=== PATIENT | female | born 1930 | race Caucasian/White ===

== ENCOUNTER 2018-02-04 11:05 | Inpatient (IN) | payer OTHER ==
--- NOTE | 2018-02-04 11:50 | PDOC ---
History of Present Illness - General Chief Complaint: Revisit, Lab Variance Stated Complaint: ANEMIA, KIDNEY PROBLEM Time Seen by Provider: 02/04/18 11:49 - History of Present Illness Initial Comments: 02/04/18 11:54 87yo F hx HTN, hypothyroid, RA, gout, bronchitis presents to ED from PCPs office due to anemia on outpt labs. Pt's hemoglobin was found to be 8.9 compared to 14 for 1 year ago. Pt reports black stools for 1 week. Not on any blood thinners. Pt states she takes advil twice a day for arthritis. Last colonoscopy 15+ years ago. Denies dizziness, SOB, CP. Pt's calcium also found to 6.9 and creatinine 2.4, up from 1.8 one year ago. Pt currently under work up for LE edema, had an US 1 week ago at [place] that was reportedly negative for DVT. Denies f/c, abd pain, headache, focal weakness/numbness. Has 71 pack year smoking hx. Past History - Past Medical History Allergies/Adverse Reactions: Allergies Allergy/AdvReac Type Severity Reaction Status Date / Time No Known Allergies Allergy Verified 02/04/18 11:25 Home Medications: Ambulatory Orders Cholecalciferol (Vitamin D3) [Vitamin D3] 1,000 unit PO DAILY capsule 05/23/14 Ibuprofen [Advil -] 400 mg PO DAILY 02/04/18 Nabumetone [Relafen -] 500 mg PO DAILY 02/04/18 Anemia: Yes COPD: No Disorders: Yes HTN: Yes Thyroid Disease: Yes Other medical history: RHEUMATOID ARTHRITIS - Suicide/Smoking/Psychosocial Hx Smoking History: Never smoked Information on smoking cessation initiated: No Hx Alcohol Use: No Drug/Substance Use Hx: No Substance Use Type: None Review of Systems - Review of Systems Comments:: 02/04/18 11:58 GENERAL/CONSTITUTIONAL: No fever or chills. No weakness. HEAD, EYES, EARS, NOSE AND THROAT: No change in vision. No ear pain or discharge. No sore throat. GASTROINTESTINAL: No nausea, vomiting, diarrhea or constipation. +dark stools GENITOURINARY: No dysuria, frequency, or change in urination. CARDIOVASCULAR: No chest pain or shortness of breath. RESPIRATORY: No cough, wheezing, or hemoptysis. MUSCULOSKELETAL: No joint or muscle swelling or pain. No neck or back pain. SKIN: No rash NEUROLOGIC: No headache, vertigo, loss of consciousness, or change in strength/ sensation. ENDOCRINE: No increased thirst. No abnormal weight change. HEMATOLOGIC/LYMPHATIC: No anemia, easy bleeding, or history of blood clots. ALLERGIC/IMMUNOLOGIC: No hives or skin allergy. *Physical Exam - Vital Signs Last Vital Signs Temp Pulse Resp BP Pulse Ox 98.9 F 79 18 139/84 97 02/04/18 11:17 02/04/18 11:17 02/04/18 11:17 02/04/18 11:17 02/04/18 11:17 - Physical Exam Comments: 02/04/18 11:58 GENERAL: Awake, alert, in no acute distress. Pale in appearance. EYES: Pale conjunctiva ENT: Oropharynx clear without exudates. Moist mucosa NECK: Normal ROM, supple, no lymphadenopathy, JVD, or masses LUNGS: course BS throughout with diffuse mild exp wheezing. No crackles or increased WOB HEART: Regular rate and rhythm, normal S1 and S2, no murmurs, rubs or gallops ABDOMEN: Soft, nontender, normoactive bowel sounds. No guarding, no rebound. No masses RECTAL exam: brown non bloody stool in vault, no active bleeding EXTREMITIES: +b/l 2+ pitting LE edema NEUROLOGICAL: Normal speech, cranial nerves intact, equal strength and sensation b/l ED Treatment Course - LABORATORY CBC & Chemistry Diagram: 02/04/18 12:50 02/04/18 12:50 Medical Decision Making - Medical Decision Making 02/04/18 12:28 87yo F hx hypothyroid, HTN, CKD, daily NSAID use presents to the ED with abnormal labs including anemia with hgb down to 8s from 14 one year ago. Vitals wnl, exam with brown non bloody stool. Likely UGIB 2/2 possible ulcer from NSAID use? Will check labs, get GI c/s, transfuse, and admit. 02/04/18 15:05 Hgb stable at 9.2, calcium still low corrected Dr. Munguia recommends PPI, admission for possible endoscopy Wednesday Pt can have clear liquid diet Case discussed with Dr. Head, pt accepted for inpt admission Case discussed in detail with admitting physician including history, physical exam and ancillary studies. Admitting physician has assumed care for the patient, will follow all pending diagnostics and will complete the evaluation and treatment. *DC/Admit/Observation/Transfer Diagnosis at time of Disposition: GI bleed - Discharge Dispostion Condition at time of disposition: Good Decision to Admit order: Yes - Referrals Referrals: Aiden Ramirez MD [Primary Care Provider] - - Patient Instructions - Post Discharge Activity - Attestations Physician Attestion: 02/04/18 15:09 I, Dr. Jocelyn Kim MD, attest that this document has been prepared under my direction and personally reviewed by me in its entirety. I further attest, that it accurately reflects all work, treatment, procedures and medical decision -making performed by me.
[2018-02-04] MEDS ORDERED: POTASSIUM CHLORIDE ORAL LIQUID 20 MEQ/15 ML PO ONE (12:21)
[2018-02-04] MEDS ORDERED: PANTOPRAZOLE SODIUM 40 MG VIAL IVPUSH ONE (12:53)
--- NOTE | 2018-02-04 13:00 | PN ---
Progress Note (short form) - Note Progress Note: Patient seen and consult dictated. Patient is an 87 yo female admitted with recent melena, weakness, LE edema; has been on NSAIDS (stopped x 1 week). Has hx gastritis/duodenitis in past. +Anemia - likely due to GI blood loss. Rec: PPI bid Clear liquid diet (nothing red); if stable, can advance to soft in am Transfuse with PRBCs as needed Will likely need EGD (?on Wednesday am) to r/o ulcer Discussed with ED and Diana Rooney NP
[2018-02-04 13:17] LABS: BASO % 1.4 % (0-2.0); EOS % 0.2 % (0-4.5); HEMATOCRIT 28.1 % (32.4-45.2); HEMOGLOBIN 9.2 GM/dl (10.7-15.3); LYMPH % 21.8 % (8-40); MCH 30.7 pg (25.7-33.7); MCHC 32.8 g/dl (32.0-36.0); MEAN CELL VOLUME 93.6 fl (80-96); MEAN PLT VOLUME 9.3 fl (7.5-11.1); MONO % 7.8 % (3.8-10.2); NEUT % 68.8 % (42.8-82.8); PLATELET COUNT 180 K/MM3 (134-434); RDW 15.3 % (11.6-15.6); WHITE BLOOD COUNT 6.9 K/mm3 (4.0-10.8)
[2018-02-04 13:37] LABS: ACTIVATED PTT 31.7 SECONDS (25.2-36.5)
[2018-02-04] MEDS ORDERED: PANTOPRAZOLE SODIUM 40 MG VIAL ONE (13:37)
[2018-02-04 13:40] LABS: ALBUMIN 3.2 g/dl (3.5-5.0); ALK PHOS 118 U/L (32-92); ANION GAP 9 (8-16); BILIRUBIN,TOTAL 0.4 mg/dl (0.2-1.0); BLOOD UREA NITROGEN 23 mg/dl (7-18); CHLORIDE 102 mmol/L (98-107); CO2 25 mmol/L (22-28); CREATININE 2.3 mg/dl (0.6-1.3); GLUCOSE,RANDOM 76 mg/dl (74-106); POTASSIUM 3.1 mmol/L (3.5-5.1); SGOT/AST 24 U/L (10-42); SGPT/ALT 14 U/L (10-40); SODIUM 136 mmol/L (136-145)
[2018-02-04 13:41] LABS: INR 1.1 (0.82-1.09); PROTHROMBIN TIME (PATIENT) 12.3 SEC (10.2-13.0)
[2018-02-04 13:50] LABS: CALCIUM 6.9 mg/dl (8.4-10.2)
[2018-02-04 14:08] LABS: URINE APPEARANCE Clear; URINE BILIRUBIN Negative (NEGATIVE); URINE COLOR Yellow; URINE GLUCOSE (UA) Negative (NEGATIVE); URINE KETONE Negative (NEGATIVE); URINE NITRITE Negative (NEGATIVE); URINE UROBILINOGEN 0.2 (0.2-1.0)
[2018-02-04 14:09] LABS: URINE LEUK ESTERASE TRACE (NEGATIVE); URINE PROTEIN 2+ (NEGATIVE)
[2018-02-04 14:44] LABS: EPI CELLS FEW /HPF; URINE RBC 0-2 /hpf (0-3)
[2018-02-04 18:49] VITALS: BMI 18.8
--- NOTE | 2018-02-05 06:57 | CONS ---
DATE OF CONSULTATION: 02/04/2018 REASON FOR CONSULTATION: I was asked to evaluate this 87-year-old female admitted with history of melena and anemia. HISTORY OF PRESENT ILLNESS: The patient is an 87-year-old female with a history of hypertension, rheumatoid arthritis, gout, hypothyroidism, and bronchitis. She also has a known history of diverticulosis and peptic disease with duodenitis and gastritis on upper endoscopy many years ago. The patient has been on NSAIDs daily or twice a day for extended period of time with the recommendation to stop them last week when she developed epigastric pain. She reports stopping the medicine but has had some black tarry stools for the past week. The patient was noted in her primary care doctor's office to have a significant anemia with a hemoglobin of 8.9 as compared to 14 last year. The patient is currently being admitted to the hospital for evaluation and treatment. The patient denies any nausea or vomiting. Her appetite has been somewhat diminished this past week due to some epigastric pain. She also takes Relafen and vitamin D3 in addition to Advil. She is a nonsmoker and nondrinker. PHYSICAL EXAMINATION: General: She is a well-developed, pale-appearing female with slightly pale conjunctivae. Lungs: Grossly clear lungs. Cardiac: Regular rate and rhythm. Abdomen: Soft, normoactive bowel sounds, and minimal epigastric discomfort. LABORATORY: Tests are currently pending from the emergency room; however, her hemoglobin from February 01, 2018, was 8.9 with hematocrit 26.9 and MCV of 94.4. She had a normal white count of 7.3 and a normal platelet count of 187,000. Her chemistries on that date included a BUN of 23 and a creatinine of 2.4. Her serum ferritin level was 16.9. Patient likely with NSAID induced peptic disease with GI bleeding and melena. Patient currently hemodynamically stable, although she does have lower extremity edema and the anemia as noted. A decision regarding blood transfusions to be made based on her repeat blood test and clinical course. Would empirically begin patient on a proton pump inhibitor twice a day and monitor for signs of further bleeding. Would keep on liquid diet today, but advance to full liquids or soft in the next 1-2 days if otherwise stable. Will arrange for upper endoscopy after the weekend or sooner if there is evidence of acute bleeding. Would also make sure patient avoids NSAIDs, Relafen, and aspirin. Will follow. JEWEL MARTINEZ M.D. ANKIT/[id number]
--- NOTE | 2018-02-05 07:32 | HP ---
CHIEF COMPLAINT: anemia PCP: HISTORY OF PRESENT ILLNESS: Patient is an 87 year old female with a significant past medical history of hypertension, hypothyroidism, rheumatoid arthritis, gout, daily 1/2 pack day smoker and bronchitis. She presents to the ED from PCP's office for anemia done on outpatient lab work. It was reported that her hmg was 8.9. Her baseline is usually apx 14. Patient reports weakness and dark stools for about 1 week. She is not currently taking any blood thinners but is on Advil as needed (but usually takes it twice per day for her arthritis) Patient was noted to have lower extremity edema bilateral on extremity and had a recent negative ultrasound per patient. Patient denies dizziness, chest pain, shortness of breath, abdominal pain or diarrhea. On admission her labs revealed creat 2.4 (was 1.8 in 2015), negative stool occult blood, hypocalcemia and hypokalemia. ER course was notable for: (1) hmg/hct 9.2/28.1 (2) creat 2.4 (3) hypocalcemia, hypokalemia Recent Travel: PAST MEDICAL HISTORY: hypertension, hypothyroidism, rheumatoid arthritis, gout , daily 1/2 pack day smoker and bronchitis PAST SURGICAL HISTORY:colonoscopy 15+ years ago. Social History: Smoking: current every day 1/2 pack day smoker (not willing to quit) Alcohol: denies Drugs: denies Family History: Allergies No Known Allergies Allergy (Verified 02/04/18 11:25) HOME MEDICATIONS: Home Medications Medication Instructions Recorded Cholecalciferol (Vitamin D3) 1,000 unit PO DAILY capsule 05/23/14 [Vitamin D3] Ibuprofen [Advil -] 400 mg PO DAILY 02/04/18 Nabumetone [Relafen -] 500 mg PO DAILY 02/04/18 PHYSICAL EXAMINATION Vital Signs - 24 hr 02/04/18 02/04/18 02/04/18 11:17 15:56 18:23 Temperature 98.9 F 97.9 F Pulse Rate 79 80 Pulse Rate [ 80 Apical] Respiratory 18 19 16 Rate Blood Pressure 139/84 147/73 Blood Pressure 154/80 [Left Arm] O2 Sat by Pulse 97 97 Oximetry (%) 02/04/18 02/04/18 02/04/18 19:00 20:28 21:04 Temperature 98.2 F Pulse Rate 78 Pulse Rate [ Apical] Respiratory 16 16 18 Rate Blood Pressure 124/67 Blood Pressure [Left Arm] O2 Sat by Pulse Oximetry (%) 02/04/18 02/04/18 02/05/18 22:40 23:00 03:00 Temperature Pulse Rate Pulse Rate [ Apical] Respiratory 18 Rate Blood Pressure Blood Pressure [Left Arm] O2 Sat by Pulse 95 95 95 Oximetry (%) 02/05/18 02/05/18 06:46 06:57 Temperature 98.0 F Pulse Rate 79 Pulse Rate [ Apical] Respiratory 18 18 Rate Blood Pressure 136/67 Blood Pressure [Left Arm] O2 Sat by Pulse 94 L 94 L Oximetry (%) GENERAL: Awake, alert, in no acute distress. facial pallor EYES: Pale conjunctiva ENT: Oropharynx clear without exudates. Moist mucosa NECK: Normal ROM, supple, no lymphadenopathy, JVD, or masses LUNGS: course breathsounds throughout with diffuse mild exp wheezing most prominent on right lung. HEART: Regular rate and rhythm ABDOMEN: Soft, nontender, normoactive bowel sounds. No guarding, no rebound. No masses EXTREMITIES: +b/l 2+ pitting LE edema NEUROLOGICAL: Normal speech, cranial nerves intact, equal strength and sensation b/l Laboratory Results - last 24 hr 02/04/18 02/04/18 02/04/18 12:50 12:50 12:50 WBC 6.9 RBC 3.00 L Hgb 9.2 L Hct 28.1 L MCV 93.6 MCH 30.7 MCHC 32.8 RDW 15.3 Plt Count 180 MPV 9.3 Absolute Neuts (auto) 4.8 Neutrophils % 68.8 Lymphocytes % 21.8 Monocytes % 7.8 Eosinophils % 0.2 Basophils % 1.4 PT with INR 12.3 INR 1.10 PTT (Actin FS) 31.7 Sodium Potassium Chloride Carbon Dioxide Anion Gap BUN Creatinine Creat Clearance w eGFR Random Glucose Calcium Total Bilirubin AST ALT Alkaline Phosphatase Total Protein Albumin Urine Color Yellow Urine Appearance Clear Urine pH 7.0 Ur Specific Willis 1.020 Urine Protein 2+ H Urine Glucose (UA) Negative Urine Ketones Negative Urine Blood Trace-lysed H Urine Nitrite Negative Urine Bilirubin Negative Urine Urobilinogen 0.2 Ur Leukocyte Esterase Trace H Urine RBC 0-2 Urine WBC 1-3 Ur Epithelial Cells Few Stool Occult Blood Blood Type Antibody Screen 02/04/18 02/04/18 02/04/18 12:50 12:50 12:50 WBC RBC Hgb Hct MCV MCH MCHC RDW Plt Count MPV Absolute Neuts (auto) Neutrophils % Lymphocytes % Monocytes % Eosinophils % Basophils % PT with INR INR PTT (Actin FS) Sodium 136 Potassium 3.1 L Chloride 102 Carbon Dioxide 25 Anion Gap 9 BUN 23 H Creatinine 2.3 H Creat Clearance w eGFR 20.15 Random Glucose 76 D Calcium 6.9 L* Total Bilirubin 0.4 AST 24 ALT 14 Alkaline Phosphatase 118 H D Total Protein 6.0 L Albumin 3.2 L Urine Color Urine Appearance Urine pH Ur Specific Willis Urine Protein Urine Glucose (UA) Urine Ketones Urine Blood Urine Nitrite Urine Bilirubin Urine Urobilinogen Ur Leukocyte Esterase Urine RBC Urine WBC Ur Epithelial Cells Stool Occult Blood Blood Type O POSITIVE O POSITIVE Antibody Screen Negative 02/04/18 14:55 WBC RBC Hgb Hct MCV MCH MCHC RDW Plt Count MPV Absolute Neuts (auto) Neutrophils % Lymphocytes % Monocytes % Eosinophils % Basophils % PT with INR INR PTT (Actin FS) Sodium Potassium Chloride Carbon Dioxide Anion Gap BUN Creatinine Creat Clearance w eGFR Random Glucose Calcium Total Bilirubin AST ALT Alkaline Phosphatase Total Protein Albumin Urine Color Urine Appearance Urine pH Ur Specific Willis Urine Protein Urine Glucose (UA) Urine Ketones Urine Blood Urine Nitrite Urine Bilirubin Urine Urobilinogen Ur Leukocyte Esterase Urine RBC Urine WBC Ur Epithelial Cells Stool Occult Blood Negative Blood Type Antibody Screen ASSESSMENT/PLAN: Patient is an 87 year old female with a significant past medical history of hypertension, hypothyroidism, rheumatoid arthritis, gout, daily 1/2 pack day smoker and bronchitis. She presents to the ED from PCP's office for anemia done on outpatient lab work. It was reported that her hmg was 8.9. Her baseline is usually apx 14. Patient reports weakness and dark stools for about 1 week. She is not currently taking any blood thinners but is on Advil as needed (but usually takes it twice per day for her arthritis) Patient was noted to have lower extremity edema bilateral on extremity and had a recent negative ultrasound per patient. Hematology: Anemia, acute: hmg lower than baseline. Patient on chronic NSAIDS for RA, now with weakness and pallor. Will give Protonix IVPush BID. Iron studies and repeat stool for occult blood. GI following: GI: Patient tolerated clear liquid diet. advanced to soft diet this morning. Possible EGD Wednesday per GI to rule out ulcer. Card: Hypertension: On Norvasc, BP at goal. Renal: GUSTAVO on CKD. will hydrate overnight. Repeat labs in a.m. If worsening, consider renal consult. hypocalcemia, hypokalemia Endocrine: Hypothyroidsm: On Synthroid Psyche: Smoking: Nicotine patch. Counseled on cessation. Vascular: Lower ext edema: doppler of lower ext ordered for bilateral +2 edema ordered. Pt is current daily smoker and high risk for DVT. fen ns @ 75/cchr monitor electrolytes soft diet SCDs a/c contraindicated Visit type - Emergency Visit Emergency Visit: Yes ED Registration Date: 02/04/18 Care time: The patient presented to the Emergency Department on the above date and was hospitalized for further evaluation of their emergent condition. - New Patient This patient is new to me today: Yes Date on this admission: 02/06/18 - Critical Care Critical Care patient: No Hospitalist Screening - Colonoscopy Questionnaire Colonoscopy Questionnaire: Colonoscopy Questionnaire - Patient: 50 - 75 years old and never had a screening colonoscopy: Unknown History of colon or rectal polyps, or CA: Unknown History of IBD, Crohn's disease or UC: Unknown History of abdominal radiation therapy as a child: Unknown - Relative: 1 with colon or rectal CA, or polyps at age 60 or younger: Unknown Colon or rectal CA diagnosed at age 45 or younger: Unknown Multiple relatives with colon or rectal CA: Unknown - Outcome: Screening Result: Negative Screen
[2018-02-05 09:23] LABS: HEMATOCRIT 23.8 % (32.4-45.2); HEMOGLOBIN 7.9 GM/dl (10.7-15.3); MCH 31.1 pg (25.7-33.7); MEAN CELL VOLUME 94.4 fl (80-96); MEAN PLT VOLUME 9.2 fl (7.5-11.1); PLATELET COUNT 133 K/MM3 (134-434); RBC 2.53 M/mm3 (3.60-5.2); RDW 15.3 % (11.6-15.6); WHITE BLOOD COUNT 4.5 K/mm3 (4.0-10.8)
[2018-02-05 09:24] LABS: ALBUMIN 2.5 g/dl (3.5-5.0); ALK PHOS 96 U/L (32-92); ANION GAP 8 (8-16); BILIRUBIN,TOTAL 0.6 mg/dl (0.2-1.0); BLOOD UREA NITROGEN 21 mg/dl (7-18); CHLORIDE 104 mmol/L (98-107); CO2 25 mmol/L (22-28); CREATININE 2.1 mg/dl (0.6-1.3); GLUCOSE,RANDOM 82 mg/dl (74-106); POTASSIUM 3.3 mmol/L (3.5-5.1); SGOT/AST 20 U/L (10-42); SGPT/ALT 13 U/L (10-40); SODIUM 137 mmol/L (136-145); TOT PROT 4.5 g/dl (6.4-8.3)
[2018-02-05] MEDS: CALCIUM 500MG/VIT-D 200 UNITS COMBO TABLET (FP) PO SCH (09:47)
[2018-02-05] MEDS: LEVOTHYROXINE NA 75 MCG TABLET (FP) PO SCH (10:20)
[2018-02-05] MEDS ORDERED: ACETAMINOPHEN 325 MG TABLET (FP) PO PRN (10:21)
[2018-02-05] MEDS: amLODIPine BESYLATE 10 MG TABLET (FP) PO SCH (10:25)
[2018-02-05] MEDS: PANTOPRAZOLE SODIUM 40 MG VIAL IVPUSH SCH ×2 (10:25→22:10)
[2018-02-05 10:27] LABS: CALCIUM 6.5 mg/dl (8.4-10.2)
[2018-02-05] MEDS ORDERED: PANTOPRAZOLE 40 MG TABLET (FP) PO SCH (10:30)
[2018-02-05] MEDS: NICOTINE 14 MG/24 HOURS TOPICAL PATCH TD SCH (14:29)
[2018-02-05 14:34] LABS: BASO % 0.2 % (0-2.0); EOS % 0.5 % (0-4.5); HEMATOCRIT 27.1 % (32.4-45.2); HEMOGLOBIN 8.8 GM/dl (10.7-15.3); MCH 30.4 pg (25.7-33.7); MCHC 32.5 g/dl (32.0-36.0); MEAN CELL VOLUME 93.5 fl (80-96); MONO % 10.8 % (3.8-10.2); NEUT % 62.5 % (42.8-82.8); PLATELET COUNT 153 K/MM3 (134-434); RDW 15.1 % (11.6-15.6); WHITE BLOOD COUNT 5.9 K/mm3 (4.0-10.8)
[2018-02-05] MEDS ORDERED: POTASSIUM CHLORIDE TABS 20 MEQ TABLET.ER (FP) PO ONE (15:45)
[2018-02-05] MEDS ORDERED: ALBUTEROL SO4 2.5/IPRATROPIUM 0.5 INH SOL 3 ML VIAL.NEB. NEB PRN (21:48)
[2018-02-05] MEDS: SODIUM CHLORIDE 1,000 ML IV SCH (22:10)
[2018-02-06] MEDS: LEVOTHYROXINE NA 75 MCG TABLET (FP) PO SCH (06:40)
--- NOTE | 2018-02-06 09:42 | PN ---
Physical Exam: SUBJECTIVE: denies pain or discomfort. OBJECTIVE: NPO for EGD in a.m. Vital Signs Period Temp Pulse Resp BP Sys/Sultana Pulse Ox Last 24 Hr 97.6 F-98.0 F 80-84 17-19 114-138/60-77 96-97 GENERAL: Awake, alert, in no acute distress. facial pallor EYES: Pale conjunctiva ENT: Oropharynx clear without exudates. Moist mucosa NECK: Normal ROM, supple, no lymphadenopathy, JVD, or masses LUNGS: course breathsounds throughout with diffuse mild exp wheezing most prominent on right lung. HEART: Regular rate and rhythm ABDOMEN: Soft, nontender, normoactive bowel sounds. No guarding, no rebound. No masses EXTREMITIES: +b/l 2+ pitting LE edema NEUROLOGICAL: Normal speech, cranial nerves intact, equal strength and sensation b/l Laboratory Results - last 24 hr 02/05/18 02/05/18 07:35 14:00 WBC 5.9 RBC 2.90 L Hgb 8.8 L Hct 27.1 L MCV 93.5 MCH 30.4 MCHC 32.5 RDW 15.1 Plt Count 153 MPV 9.0 Absolute Neuts (auto) 3.8 Neutrophils % 62.5 Lymphocytes % 26.0 Monocytes % 10.8 H Eosinophils % 0.5 Basophils % 0.2 Sodium 137 Potassium 3.3 L Chloride 104 Carbon Dioxide 25 Anion Gap 8 BUN 21 H Creatinine 2.1 H Creat Clearance w eGFR 22.38 Random Glucose 82 Calcium 6.5 L* Total Bilirubin 0.6 AST 20 ALT 13 Alkaline Phosphatase 96 H D Total Protein 4.5 L Albumin 2.5 L Active Medications Generic Name Dose Route Start Last Admin Trade Name Valeri PRN Reason Stop Dose Admin Acetaminophen 650 mg 02/05/18 10:21 02/05/18 14:32 Tylenol - PO 650 mg Q6H PRN Administration PAIN LEVEL 7 - 10 Albuterol/Ipratropium 1 amp 02/05/18 21:48 Duoneb - NEB Q6H PRN SHORTNESS OF BREATH Amlodipine Besylate 10 mg 02/05/18 10:30 02/05/18 10:25 Norvasc - PO 10 mg DAILY BOB Administration Calcium Carbonate/Cholecalciferol 2 tab 02/04/18 16:00 02/05/18 09:47 Os-Fredy 500+D - PO 2 tab DAILY BOB Administration Cholecalciferol 1,000 unit 02/06/18 10:00 Vitamin D3 - PO DAILY BOB Sodium Chloride 1,000 mls @ 75 mls/hr 02/05/18 22:00 02/05/18 22:10 Normal Saline - IV 75 mls/hr ASDIR BOB Administration Levothyroxine Sodium 75 mcg 02/05/18 10:30 02/06/18 06:40 Synthroid - PO 75 mcg AM BOB Administration Nicotine 14 mg 02/05/18 10:30 02/05/18 14:29 Nicoderm Patch - TD Not Given DAILY BOB Pantoprazole Sodium 40 mg 02/05/18 10:30 02/05/18 22:10 Protonix Iv IVPUSH 40 mg BID BOB Administration ASSESSMENT/PLAN: Patient is an 87 year old female with a significant past medical history of hypertension, hypothyroidism, rheumatoid arthritis, gout, daily 1/2 pack day smoker and bronchitis. She presents to the ED from PCP's office for anemia done on outpatient lab work. It was reported that her hmg was 8.9. Her baseline is usually apx 14. Patient reports weakness and dark stools for about 1 week. She is not currently taking any blood thinners but is on Advil as needed (but usually takes it twice per day for her arthritis) Patient was noted to have lower extremity edema bilateral on extremity and had a recent negative ultrasound per patient. Hematology/GI: Anemia, acute: hmg lower than baseline. Patient on chronic NSAIDS for RA, now with weakness and pallor. Will give Protonix IVPush BID. Iron studies and repeat stool for occult blood. GI following: for EGD tomorrow. NPO at midnight. Card: Hypertension: On Norvasc, BP at goal. Renal: GUSTAVO on CKD. Creat rising, was 1.7 in 2017, Last renal u/s 2016 shows no hydronephrosis and found altered renal cortical echogenicty. chronic NSAID use at home. Repeat labs in a.m. hypocalcemia: corrected calcium 7.4, started on on calcium supplementations on admission Hypokalemia: On K supplements BID Endocrine: Hypothyroidsm: On Synthroid Psyche: Smoking: Nicotine patch. Counseled on cessation, refusing patch. Vascular: Lower ext edema: doppler of lower ext ordered for bilateral +2 edema ordered. Pt is current daily smoker and high risk for DVT. fen ns @ 75/cchr monitor electrolytes soft diet SCDs a/c contraindicated full code Visit type - Emergency Visit Emergency Visit: Yes ED Registration Date: 02/04/18 Care time: The patient presented to the Emergency Department on the above date and was hospitalized for further evaluation of their emergent condition. - New Patient This patient is new to me today: No - Critical Care Critical Care patient: No - Discharge Referral Referred to [facility] Med P.C[facility] No
[2018-02-06 09:53] LABS: HEMOGLOBIN 7.9 GM/dl (10.7-15.3); MCH 31.2 pg (25.7-33.7); MCHC 33.1 g/dl (32.0-36.0); MEAN CELL VOLUME 94.2 fl (80-96); MEAN PLT VOLUME 9.3 fl (7.5-11.1); PLATELET COUNT 131 K/MM3 (134-434); RBC 2.54 M/mm3 (3.60-5.2); RDW 15.5 % (11.6-15.6); WHITE BLOOD COUNT 5.7 K/mm3 (4.0-10.8)
[2018-02-06 10:03] LABS: INR 1.1 (0.82-1.09); PROTHROMBIN TIME (PATIENT) 12.3 SEC (10.2-13.0)
[2018-02-06] MEDS: PANTOPRAZOLE SODIUM 40 MG VIAL IVPUSH SCH ×2 (10:12→21:30)
[2018-02-06] MEDS: CALCIUM 500MG/VIT-D 200 UNITS COMBO TABLET (FP) PO SCH ×2 (10:12→13:13)
[2018-02-06] MEDS: NICOTINE 14 MG/24 HOURS TOPICAL PATCH TD SCH (10:12)
[2018-02-06] MEDS: CHOLECALCIFEROL (VITAMIN D3) 1,000 UNIT TABLET (FP) PO SCH (10:12)
[2018-02-06 10:13] LABS: ALBUMIN 2.6 g/dl (3.5-5.0); ALK PHOS 99 U/L (32-92); ANION GAP 9 (8-16); BILIRUBIN,TOTAL 0.5 mg/dl (0.2-1.0); BLOOD UREA NITROGEN 22 mg/dl (7-18); CHLORIDE 104 mmol/L (98-107); CHOLESTEROL 124 mg/dl; CO2 22 mmol/L (22-28); CREATININE 2.4 mg/dl (0.6-1.3); GLUCOSE,RANDOM 72 mg/dl (74-106); HDL CHOLESTEROL 85 mg/dl (29-89); MAGNESIUM 1.4 mg/dL (1.8-2.4); PHOSPHOROUS 4.3 mg/dl (2.5-4.6); POTASSIUM 3.1 mmol/L (3.5-5.1); SGOT/AST 22 U/L (10-42); SGPT/ALT 11 U/L (10-40); SODIUM 135 mmol/L (136-145); TOT PROT 4.9 g/dl (6.4-8.3); TRIGLYCERIDES 37 mg/dl (35-160)
[2018-02-06] MEDS: amLODIPine BESYLATE 10 MG TABLET (FP) PO SCH (10:13)
[2018-02-06 10:24] LABS: CALCIUM 6.3 mg/dl (8.4-10.2)
[2018-02-06] MEDS ORDERED: MAGNESIUM SULF 50% (8.12 MEQ/2 ML-1 GM VIAL) IVPB ONE (11:34)
[2018-02-06] MEDS ORDERED: MAGNESIUM SULFATE IN WATER 2 GM/50 ML IVPB IVPB ONE (12:00)
[2018-02-06] MEDS: CALCIUM (OYSTER SHELL) 500 MG TABLET (FP) PO SCH (13:12)
[2018-02-06] MEDS: POTASSIUM CHLORIDE ORAL LIQUID 20 MEQ/15 ML PO SCH ×2 (13:14→21:29)
[2018-02-06] MEDS: SODIUM CHLORIDE 1,000 ML IV SCH (21:30)
[2018-02-07] MEDS: LEVOTHYROXINE NA 75 MCG TABLET (FP) PO SCH (06:29)
[2018-02-07] MEDS ORDERED: PROPOFOL 20 ML ONE (07:16)
[2018-02-07] MEDS ORDERED: LIDOCAINE HCL/PF 2% SDV 5ML VIAL ONE (07:17)
--- NOTE | 2018-02-07 07:36 | PN ---
Physical Exam: SUBJECTIVE: Patient seen and examined, patient tolerating soft diet after endoscopy, denies any melena stools denies any abdominal pain OBJECTIVE:Patient is an 87 year old female with a significant past medical history of hypertension, hypothyroidism, rheumatoid arthritis, gout, daily 1/2 pack day smoker and bronchitis Vital Signs Period Temp Pulse Resp BP Sys/Sultana Pulse Ox Last 24 Hr 97.5 F-97.6 F 77-88 17-19 118-152/56-75 95-99 GENERAL: The patient is awake, alert, and fully oriented, in no acute distress. HEAD: Normal with no signs of trauma. EYES: PERRL, extraocular movements intact, sclera anicteric, conjunctiva clear. No ptosis. ENT: Ears normal, nares patent, oropharynx clear without exudates, moist mucous membranes. NECK: Trachea midline, full range of motion, supple. LUNGS: Breath sounds equal, clear to auscultation bilaterally, no wheezes, no crackles, no accessory muscle use. HEART: Regular rate and rhythm, S1, S2 without murmur, rub or gallop. ABDOMEN: Soft, nontender, nondistended, normoactive bowel sounds, no guarding, no rebound, no hepatosplenomegaly, no masses. EXTREMITIES: 2+ pulses, warm, well-perfused, venous stasis changes +2 edema NEUROLOGICAL: Cranial nerves II through XII grossly intact. Normal speech, gait not observed. PSYCH: Normal mood, normal affect. SKIN: Warm, dry, normal turgor, no rashes or lesions noted Laboratory Results - last 24 hr 02/06/18 02/06/18 02/06/18 06:00 06:00 06:00 WBC 5.7 RBC 2.54 L Hgb 7.9 L Hct 24.0 L MCV 94.2 MCH 31.2 MCHC 33.1 RDW 15.5 Plt Count 131 L MPV 9.3 Retic Count PT with INR 12.3 INR 1.10 Sodium 135 L Potassium 3.1 L Chloride 104 Carbon Dioxide 22 Anion Gap 9 BUN 22 H Creatinine 2.4 H Creat Clearance w eGFR 19.19 Random Glucose 72 L Calcium 6.3 L* Phosphorus 4.3 Magnesium 1.4 L Ferritin Total Bilirubin 0.5 AST 22 ALT 11 Alkaline Phosphatase 99 H Total Protein 4.9 L Albumin 2.6 L Triglycerides Cholesterol Total LDL Cholesterol HDL Cholesterol Blood Type Antibody Screen 02/06/18 02/06/18 02/06/18 06:00 06:00 06:00 WBC RBC Hgb Hct MCV MCH MCHC RDW Plt Count MPV Retic Count 1.50 PT with INR INR Sodium Potassium Chloride Carbon Dioxide Anion Gap BUN Creatinine Creat Clearance w eGFR Random Glucose Calcium Phosphorus Magnesium Ferritin Total Bilirubin AST ALT Alkaline Phosphatase Total Protein Albumin Triglycerides 37 D Cholesterol 124 Total LDL Cholesterol 32 HDL Cholesterol 85 Blood Type O POSITIVE Antibody Screen Negative 02/06/18 06:00 WBC RBC Hgb Hct MCV MCH MCHC RDW Plt Count MPV Retic Count PT with INR INR Sodium Potassium Chloride Carbon Dioxide Anion Gap BUN Creatinine Creat Clearance w eGFR Random Glucose Calcium Phosphorus Magnesium Ferritin 16.7 Total Bilirubin AST ALT Alkaline Phosphatase Total Protein Albumin Triglycerides Cholesterol Total LDL Cholesterol HDL Cholesterol Blood Type Antibody Screen Active Medications Generic Name Dose Route Start Last Admin Trade Name Freq PRN Reason Stop Dose Admin Acetaminophen 650 mg 02/05/18 10:21 02/05/18 14:32 Tylenol - PO 650 mg Q6H PRN Administration PAIN LEVEL 7 - 10 Albuterol/Ipratropium 1 amp 02/05/18 21:48 Duoneb - NEB Q6H PRN SHORTNESS OF BREATH Amlodipine Besylate 10 mg 02/05/18 10:30 02/06/18 10:13 Norvasc - PO 10 mg DAILY BOB Administration Calcium Carbonate 1,000 mg 02/06/18 10:30 02/06/18 13:12 Os-Fredy 500mg - PO 1,000 mg DAILY BOB Administration Calcium Carbonate/Cholecalciferol 2 tab 02/04/18 16:00 02/06/18 13:13 Os-Fredy 500+D - PO 2 tab DAILY BOB Administration Cholecalciferol 1,000 unit 02/06/18 10:00 02/06/18 10:12 Vitamin D3 - PO 1,000 unit DAILY BOB Administration Sodium Chloride 1,000 mls @ 75 mls/hr 02/05/18 22:00 02/06/18 21:30 Normal Saline - IV 75 mls/hr ASDIR BOB Administration Levothyroxine Sodium 75 mcg 02/05/18 10:30 02/07/18 06:29 Synthroid - PO 75 mcg AM BOB Administration Nicotine 14 mg 02/05/18 10:30 02/06/18 10:12 Nicoderm Patch - TD Not Given DAILY BOB Pantoprazole Sodium 40 mg 02/05/18 10:30 02/06/18 21:30 Protonix Iv IVPUSH 40 mg BID BOB Administration Potassium Chloride 40 meq 02/06/18 10:30 02/06/18 21:29 Potassium Chloride Oral Liquid PO 40 meq BID BOB Administration ASSESSMENT/PLAN: 1) cardiovascular hypertension - blood pressure at goal, continue norvasc venous insufficiency - lower extremity edema, pending bilateral Dopplers 2) nephrology bacilio on ckd - creatine 2.3, likely nsaid induced - appreciate nephrology input 3) endocrine hypothyroidism -synthroid 4) GI upper GI bleed - pending endo today - continue protonix today fen low-sodium diet monitor electrolytes soft diet SCDs a/c contraindicated full code Visit type - Emergency Visit Emergency Visit: Yes ED Registration Date: 02/04/18 Care time: The patient presented to the Emergency Department on the above date and was hospitalized for further evaluation of their emergent condition. - New Patient This patient is new to me today: Yes Date on this admission: 02/07/18 - Critical Care Critical Care patient: No - Discharge Referral Referred to [facility] Med [facility].C[facility] No
[2018-02-07 08:31] LABS: BASO % 0.3 % (0-2.0); EOS % 0.5 % (0-4.5); HEMOGLOBIN 8.2 GM/dl (10.7-15.3); LYMPH % 30.8 % (8-40); MCH 31.1 pg (25.7-33.7); MCHC 32.9 g/dl (32.0-36.0); MEAN CELL VOLUME 94.5 fl (80-96); MEAN PLT VOLUME 9.3 fl (7.5-11.1); NEUT % 62.4 % (42.8-82.8); PLATELET COUNT 123 K/MM3 (134-434); RBC 2.65 M/mm3 (3.60-5.2); RDW 15.5 % (11.6-15.6); WHITE BLOOD COUNT 4.3 K/mm3 (4.0-10.8)
[2018-02-07 08:36] LABS: ALBUMIN 2.5 g/dl (3.5-5.0); ALK PHOS 101 U/L (32-92); ANION GAP 9 (8-16); BILIRUBIN,TOTAL 0.5 mg/dl (0.2-1.0); BLOOD UREA NITROGEN 22 mg/dl (7-18); CHLORIDE 107 mmol/L (98-107); CO2 22 mmol/L (22-28); CREATININE 2.3 mg/dl (0.6-1.3); GLUCOSE,RANDOM 83 mg/dl (74-106); POTASSIUM 3.4 mmol/L (3.5-5.1); SGOT/AST 19 U/L (10-42); SGPT/ALT 12 U/L (10-40); SODIUM 138 mmol/L (136-145); TOT PROT 4.8 g/dl (6.4-8.3)
[2018-02-07 08:44] LABS: CALCIUM 6.6 mg/dl (8.4-10.2)
[2018-02-07] MEDS: NICOTINE 14 MG/24 HOURS TOPICAL PATCH TD SCH (09:51)
[2018-02-07] MEDS: PANTOPRAZOLE SODIUM 40 MG VIAL IVPUSH SCH ×2 (09:58→21:54)
[2018-02-07] MEDS: POTASSIUM CHLORIDE ORAL LIQUID 20 MEQ/15 ML PO SCH ×2 (10:00→21:54)
--- NOTE | 2018-02-07 10:38 | PN ---
Progress Note (short form) - Note Progress Note: Upper endoscopy performed with report in chart. 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 Advance diet as tolerated
[2018-02-07] MEDS: CALCIUM (OYSTER SHELL) 500 MG TABLET (FP) PO SCH (11:26)
[2018-02-07] MEDS: CHOLECALCIFEROL (VITAMIN D3) 1,000 UNIT TABLET (FP) PO SCH (11:27)
[2018-02-07] MEDS: amLODIPine BESYLATE 10 MG TABLET (FP) PO SCH (11:27)
[2018-02-07] MEDS: CALCIUM 500MG/VIT-D 200 UNITS COMBO TABLET (FP) PO SCH (11:28)
--- NOTE | 2018-02-07 11:35 | CONSULT ---
Consult - text type - Consultation Consultation Note: Renal Consult for GUSTAVO on CKD This is a 87 year old woman with PMhx of CKD, Hypertension, Hypothyrodism, RA, Gout, Current Smoker who presented with New onset anemia with GI bleed and GUSTAVO. Denies any history of CKD but noted to have elevated Cr dating back to 2016. US done in the past also consistent with CKD. + Chronic NSAID user. No contrast exposure. NO flank pain or history of kidney stones. No N/V/D, abd pain, sob, chest pain. Making urine w/o difficulty. PMhx: as above Allergies: NKDA Family Hx: NC Social Hx: + Tobacces ROS: as per HPI Home Medications Medication Instructions Recorded Cholecalciferol (Vitamin D3) 1,000 unit PO DAILY capsule 05/23/14 [Vitamin D3] Ibuprofen [Advil -] 400 mg PO DAILY 02/04/18 Nabumetone [Relafen -] 500 mg PO DAILY 02/04/18 Vital Signs Temperature 97.5 F L 02/07/18 04:00 Pulse Rate 88 02/07/18 04:00 Respiratory Rate 18 02/07/18 04:00 Blood Pressure 152/75 02/07/18 04:00 O2 Sat by Pulse Oximetry (%) 95 02/07/18 04:00 NAD awake and alert Neck supple, No JVD RRR, No M/R CTA, no rales soft NT/ND + edema in LE Intake & Output 02/04/18 02/05/18 02/06/18 02/07/18 23:59 23:59 23:59 23:59 Intake Total 525 1050 Output Total 950 Balance -208 147 9730 Weight 46.726 kg CBC, BMP 02/07/18 08:00 02/07/18 08:00 Laboratory Tests 02/04/18 02/07/18 12:50 08:00 Creat Clearance w eGFR 20.15 Calcium 6.6 L* Albumin 2.5 L Urine Protein 2+ H Ur Leukocyte Esterase Trace H Urine RBC 0-2 Urine WBC 1-3 Current Medications Acetaminophen (Tylenol -) 650 mg PO Q6H PRN PRN Reason: PAIN LEVEL 7 - 10 Last Admin: 02/05/18 14:32 Dose: 650 mg Albuterol/Ipratropium (Duoneb -) 1 amp NEB Q6H PRN PRN Reason: SHORTNESS OF BREATH Amlodipine Besylate (Norvasc -) 10 mg PO DAILY [facility] Last Admin: 02/07/18 11:27 Dose: 10 mg Calcium Carbonate (Os-Fredy 500mg -) 1,000 mg PO DAILY [facility] Last Admin: 02/07/18 11:26 Dose: 1,000 mg Calcium Carbonate/Cholecalciferol (Os-Fredy 500+D -) 2 tab PO DAILY BOB Last Admin: 02/07/18 11:28 Dose: 2 tab Cholecalciferol (Vitamin D3 -) 1,000 unit PO DAILY [facility] Last Admin: 02/07/18 11:27 Dose: 1,000 unit Sodium Chloride (Normal Saline -) 1,000 mls @ 75 mls/hr IV ASDIR [facility] Last Admin: 02/06/18 21:30 Dose: 75 mls/hr Levothyroxine Sodium (Synthroid -) 75 mcg PO AM [facility] Last Admin: 02/07/18 06:29 Dose: 75 mcg Nicotine (Nicoderm Patch -) 14 mg TD DAILY [facility] Last Admin: 02/07/18 09:51 Dose: Not Given Pantoprazole Sodium (Protonix Iv) 40 mg IVPUSH BID [facility] Last Admin: 02/07/18 09:58 Dose: 40 mg Potassium Chloride (Potassium Chloride Oral Liquid) 40 meq PO BID [facility] Last Admin: 02/06/18 21:29 Dose: 40 meq 87 year old woman with PMhx of CKD, Hypertension, Hypothyrodism, RA, Gout, Current Smoker who presented with New onset anemia with GI bleed and GUSTAVO. #GUSTAVO on CKD vs. progressive CKD #Anemia #GI bleed #Hx of Hypertension #Proteinuira #Mild Hypokalemia Pt likely with GUSTAVO on CKD due to renal hypoprofusion from anemia +/- NSAIDs Can check urine studies for FeNa, UPCR No need for US at this time if pt is tolerating oral diet can d/c IVF Trend CBC, check SPEP and iron studies as well given CKD BP acceptable for age, continue amlodipine would not start JOSIE/ARB in this acute setting Avoid further NSAID use Continue PPI if medically cleared for discharge can follow up in our office. Thank you Patrick Kim DO
--- NOTE | 2018-02-07 20:11 | EKG ---
Test Reason : Blood Pressure : / mmHG Vent. Rate : 079 BPM Atrial Rate : 079 BPM P-R Int : 122 ms QRS Dur : 070 ms QT Int : 402 ms P-R-T Axes : 021 -05 033 degrees QTc Int : 460 ms POOR DATA QUALITY, INTERPRETATION MAY BE ADVERSELY AFFECTED NORMAL SINUS RHYTHM LOW VOLTAGE QRS BORDERLINE ECG NO PREVIOUS ECGS AVAILABLE Confirmed by MD ENRICO, JASON ([id number]) on 02/07/2018 8:11:13 PM Referred By: SUZETTE Confirmed By:JASON WESTON MD
[2018-02-08] MEDS: LEVOTHYROXINE NA 75 MCG TABLET (FP) PO SCH (06:47)
[2018-02-08 08:17] LABS: BASO % 0.6 % (0-2.0); EOS % 0.9 % (0-4.5); HEMATOCRIT 26.7 % (32.4-45.2); LYMPH % 31.7 % (8-40); MCH 31.8 pg (25.7-33.7); MCHC 33.5 g/dl (32.0-36.0); MEAN CELL VOLUME 94.8 fl (80-96); MEAN PLT VOLUME 9.3 fl (7.5-11.1); MONO % 6.2 % (3.8-10.2); NEUT % 60.6 % (42.8-82.8); PLATELET COUNT 139 K/MM3 (134-434); RBC 2.82 M/mm3 (3.60-5.2); RDW 15.8 % (11.6-15.6)
[2018-02-08 08:54] LABS: ANION GAP 10 (8-16); BLOOD UREA NITROGEN 20 mg/dl (7-18); CHLORIDE 108 mmol/L (98-107); CO2 21 mmol/L (22-28); CREATININE 2.2 mg/dl (0.6-1.3); GLUCOSE,RANDOM 109 mg/dl (74-106); MAGNESIUM 1.6 mg/dL (1.8-2.4); PHOSPHOROUS 3.9 mg/dl (2.5-4.6); POTASSIUM 3.4 mmol/L (3.5-5.1); SODIUM 139 mmol/L (136-145)
[2018-02-08 09:24] LABS: CALCIUM 6.9 mg/dl (8.4-10.2)
[2018-02-08] MEDS: PANTOPRAZOLE SODIUM 40 MG VIAL IVPUSH SCH (09:33)
[2018-02-08] MEDS: amLODIPine BESYLATE 10 MG TABLET (FP) PO SCH (09:33)
[2018-02-08] MEDS: NICOTINE 14 MG/24 HOURS TOPICAL PATCH TD SCH (09:33)
[2018-02-08] MEDS: CHOLECALCIFEROL (VITAMIN D3) 1,000 UNIT TABLET (FP) PO SCH (09:34)
[2018-02-08] MEDS: POTASSIUM CHLORIDE ORAL LIQUID 20 MEQ/15 ML PO SCH (09:34)
[2018-02-08] MEDS: CALCIUM 500MG/VIT-D 200 UNITS COMBO TABLET (FP) PO SCH (09:34)
[2018-02-08] MEDS ORDERED: MAGNESIUM SULFATE IN WATER 2 GM/50 ML IVPB IVPB ONE (10:15)
--- NOTE | 2018-02-08 10:18 | DS ---
Physical Exam: SUBJECTIVE: Patient seen and examined, patient sitting at bedside recliner tolerating breakfasts denies any abdominal pain or nausea denies any melena OBJECTIVE:Patient is an 87 year old female with a significant past medical history of hypertension, hypothyroidism, rheumatoid arthritis, gout, daily 1/2 pack day smoker and bronchitis. She presents to the ED from PCP's office for anemia done on outpatient lab work. It was reported that her hmg was 8.9. Her baseline is usually apx 14. Patient reports weakness and dark stools for about 1 week. She is not currently taking any blood thinners but is on Advil as needed (but usually takes it twice per day for her arthritis) Patient was noted to have lower extremity edema bilateral on extremity and had a recent negative ultrasound per patient. Patient denies dizziness, chest pain, shortness of breath, abdominal pain or diarrhea. On admission her labs revealed creat 2.4 (was 1.8 in 2015), negative stool occult blood, hypocalcemia and hypokalemia. ER course was notable for: (1) hmg/hct 9.2/28.1 (2) creat 2.4 (3) hypocalcemia, hypokalemia Vital Signs Period Temp Pulse Resp BP Sys/Sultana Pulse Ox Last 24 Hr 97.8 F-98 F 76-89 18-20 123-135/57-65 94-95 PHYSICAL EXAM GENERAL: The patient is awake, alert, and fully oriented, in no acute distress. HEAD: Normal with no signs of trauma. EYES: PERRL, extraocular movements intact, sclera anicteric, conjunctiva clear. No ptosis. ENT: Ears normal, nares patent, oropharynx clear without exudates, moist mucous membranes. NECK: Trachea midline, full range of motion, supple. LUNGS: Breath sounds equal, clear to auscultation bilaterally, no wheezes, no crackles, no accessory muscle use. HEART: Regular rate and rhythm, S1, S2 without murmur, rub or gallop. ABDOMEN: Soft, nontender, nondistended, normoactive bowel sounds, no guarding, no rebound, no hepatosplenomegaly, no masses. EXTREMITIES: 2+ pulses, warm, well-perfused, venous stasis changes +2 edema NEUROLOGICAL: Cranial nerves II through XII grossly intact. Normal speech, gait not observed. PSYCH: Normal mood, normal affect. SKIN: Warm, dry, normal turgor, no rashes or lesions noted LABS Laboratory Results - last 24 hr 02/07/18 02/07/18 02/08/18 22:30 22:30 07:15 WBC RBC Hgb Hct MCV MCH MCHC RDW Plt Count MPV Absolute Neuts (auto) Neutrophils % Lymphocytes % Monocytes % Eosinophils % Basophils % Sodium 139 Potassium 3.4 L Chloride 108 H Carbon Dioxide 21 L Anion Gap 10 BUN 20 H Creatinine 2.2 H Creat Clearance w eGFR 21.21 Random Glucose 109 H D Calcium 6.9 L* Phosphorus 3.9 Magnesium 1.6 L Ur Random Sodium 88 Urine Creatinine 30.5 02/08/18 07:15 WBC 5.0 RBC 2.82 L Hgb 9.0 L Hct 26.7 L MCV 94.8 MCH 31.8 MCHC 33.5 RDW 15.8 H Plt Count 139 MPV 9.3 Absolute Neuts (auto) 3.1 Neutrophils % 60.6 Lymphocytes % 31.7 Monocytes % 6.2 Eosinophils % 0.9 Basophils % 0.6 Sodium Potassium Chloride Carbon Dioxide Anion Gap BUN Creatinine Creat Clearance w eGFR Random Glucose Calcium Phosphorus Magnesium Ur Random Sodium Urine Creatinine Microbiology 02/04/18 12:50 Urine - Urine Clean Catch Urine Culture - Final IMAGING ultrasound of Kidneys: No Acute Pathology, No Hydronephrosis Noted. 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 Recommended continue PPI. Hemoglobin remained stable throughout admission patient required no blood transfusions. Patient remained asymptomatic. Patient has a past medical history of hypertension blood pressure remained at goal, Norvasc continued. Patient has a past medical history of CK D, creatinine noted to the 2.2 upon discharge GUSTAVO CK D secondary to NSAID use. Dr Kim, nephrology consulted and followed. plan: - Discharge home patient declines VNS - Continue Protonix daily, patient advice to avoid all NSAIDs and aspirin patient verbalizes understanding - Rates follow-up with primary care physician Dr. Tipton within [address] Plan discussed with Dr[address] Tipton. Date of Admission:02/04/18 Date of Discharge: 02/08/18 Minutes to complete discharge: 45 Discharge Summary Reason For Visit: ANEMIA, KIDNEY PROBLEM Current Active Problems GI bleed (Acute) Condition: Improved - Instructions Diet, Activity, Other Instructions: you were admitted from the emergency department for upper gastrointestinal bleeding avoid NSAIDs and aspirin Continue Protonix 40 mg daily Please follow-up with your primary care physician Dr. Tipton within 1 week If any new or persistent symptoms develop please return to emergency department. Referrals: Aiden Ramirez MD [Primary Care Provider] - 1 Week Disposition: HOME - Home Medications Comprehensive Discharge Medication List: Ambulatory Orders Cholecalciferol (Vitamin D3) [Vitamin D3] 1,000 unit PO DAILY capsule 05/23/14 Ibuprofen [Advil -] 400 mg PO DAILY 02/04/18 Nabumetone [Relafen -] 500 mg PO DAILY 02/04/18 This patient is new to me today: No Emergency Visit: Yes ED Registration Date: 02/04/18 Care time: The patient presented to the Emergency Department on the above date and was hospitalized for further evaluation of their emergent condition. Critical Care patient: No - Discharge Referral Referred to [facility] Yes Physician Referral: Aiden Ramirez MD (Int Med)
[2018-02-08] MEDS ORDERED: POTASSIUM CHLORIDE TABS 20 MEQ TABLET.ER (FP) PO ONE (10:30)
[2018-02-08 12:30] VITALS: BP 110/68; PULSE 68; TEMP 98.6
--- NOTE | 2018-02-09 14:11 | PATH ---
Surgical Pathology Report Patient Name: LESA MORALES Med. Rec. #: [id number] /Age/Gender: 1930 (Age: 87) / F Account: [id number] Location: [facility] MED-SURG Taken: 02/07/2018 Received: 02/07/2018 Reported: 02/09/2018 Physicians: Anthony Munguia M.D. Specimen(s) Received A: BX ANTRUM B: GASTRIC POLYP Clinical History Anemia Postoperative diagnosis: Gastric AVM, hiatal hernia Final Diagnosis A. ANTRUM, BIOPSY: GASTRIC MUCOSA SHOWING FEATURES OF MILD REACTIVE GASTROPATHY. NO H. PYLORI-LIKE ORGANISMS ARE IDENTIFIED (WITH DIFFQUIK STAIN). B. GASTRIC POLYP, BIOPSY: GASTRIC FUNDIC GLAND POLYP. NO H. PYLORI-LIKE ORGANISMS ARE IDENTIFIED (WITH DIFFQUIK STAIN). Electronically Signed Eleonora Meza M.D. Gross Description A. Received in formalin, labeled "biopsy antrum" is a olvera, irregular portion of soft tissue measuring 0.3 cm. in greatest dimension. The specimen is submitted in toto in one cassette. B. Received in formalin, labeled "gastric polyp" is a olvera, irregular portion of soft tissue measuring 0.4 cm. in greatest dimension. The specimen is submitted in toto in one cassette. 02/07/2018 saudi/02/07/2018
== END 2018-02-08 12:49 | disposition home or self-care (01) | DRG 378 ==
LOC: FER 11:05 → FM/S 15:09 → OBSVTOIN 15:10
PROVIDERS: ADMIT Internal Medicine; ATTEND Nurse Practitioner Family
PROC: 0DD68ZX Extraction of Stomach, Via Natural or Artificial Opening Endoscopic, Diagnostic (ICD-10-PCS; principal; 2018-02-07 10:13)
PROC: 0D568ZZ Destruction of Stomach, Via Natural or Artificial Opening Endoscopic (ICD-10-PCS; 2018-02-07 10:13)
DX: K55.21 Angiodysplasia of colon with hemorrhage (principal); N17.9 Acute kidney failure, unspecified; D62 Acute posthemorrhagic anemia; K31.819 Angiodysplasia of stomach and duodenum without bleeding; K92.2 Gastrointestinal hemorrhage, unspecified; Q27.33 Arteriovenous malformation of digestive system vessel; D64.9 Anemia, unspecified; E03.9 Hypothyroidism, unspecified; M06.9 Rheumatoid arthritis, unspecified; M10.9 Gout, unspecified; F17.200 Nicotine dependence, unspecified, uncomplicated; E83.51 Hypocalcemia; E87.6 Hypokalemia; J40 Bronchitis, not specified as acute or chronic; I12.9 Hypertensive chronic kidney disease with stage 1 through stage 4 chronic kidney disease, or unspecified chronic kidney disease; N18.9 Chronic kidney disease, unspecified; K44.9 Diaphragmatic hernia without obstruction or gangrene
CPT/HCPCS: 36415; 71045-TC-FY; 76775-TC; 80048; 80053; 80061; 81003; 81015; 82272; 82306; 82570; 82728; 83036; 83540; 83550; 83721; 83735; 84100; 84155; 84156; 84165; 84300; 84550; 85025; 85027; 85044; 85610; 85651; 85730; 86038; 86376; 86431; 86800; 86850; 86900; 86901; 87086; 88305-TC; 93005; 93970-TC; 97116-GP; 97161-GP; 99284-25; G0378; J7030